=== PATIENT | female | born 1995 | race African-American/Black ===

== ENCOUNTER 2018-08-26 05:57 | Emergency (ER) | payer MEDICAID ==
[~2018-08-26] VITALS: Ht 152.4 cm; Wt 82.0 kg
[2018-08-26] MEDS ORDERED: KETOROLAC 60MG/2ML VIAL IM ONE (08:00)
[2018-08-26] MEDS ORDERED: PENICILLIN G BENZATHINE 1,200,000 UNITS/2ML SYR IM ONE (10:00)
[2018-08-26 10:09] VITALS: BP 109/60
== END 2018-08-26 10:22 | disposition home or self-care (01) ==
LOC: ER 06:23
DX: J02.0 Streptococcal pharyngitis (principal); Z98.890 Other specified postprocedural states; Z88.1 Allergy status to other antibiotic agents
CPT/HCPCS: 81025; 87430; 87804; 96372; 99283; J0561; J1885